=== PATIENT | female | born 1995 | race African-American/Black ===

== ENCOUNTER 2021-08-13 11:00 | Outpatient (CLI) | payer MEDICAID ==
[~2021-08-13] VITALS: Ht 152.4 cm; Wt 98.0 kg
[~2021-08-13 11:00] MED LIST: IRONPOW5; LORA5CHW6
[2021-08-13] MEDS ORDERED: CHOL20007 OR (11:10)
[2021-08-13] MEDS ORDERED: OMEP-434 PO (11:10)
[2021-08-13 11:45] LABS: Basophils # (auto) 0 10 ^3/uL (0-0.2); Eosinophils # (auto) 0.2 10 ^3/uL (0-0.8); Hemoglobin 8.6 g/dL (12.2-16.2); Monocytes # (auto) 0.6 10 ^3/uL (0-1.3)
[2021-08-13 11:47] LABS: Basophils % (auto) 0.3 % (0.0-2.0); Hematocrit 27.4 % (36.0-46.0); Lymphocytes # (auto) 1.6 10 ^3/uL (0.4-5.4); Lymphocytes % (auto) 21.5 % (10.0-50.0); Mean Corpuscular Hemoglobin 18.1 pg (28.0-32.0); Mean Corpuscular Hgb Conc. 31.2 g/dL (32.0-36.0); Mean Corpuscular Volume 57.9 fL (80.0-100.0); Monocytes % (auto) 7.4 % (0.0-12.0); Neutrophils # (auto) 5.2 10 ^3/uL (1.6-8.6); Neutrophils % (auto) 68.8 % (37.0-80.0); Nucleated Red Blood Cells % 0.1 %; Red Blood Cells 4.74 10^6/uL (4.0-5.20); White Blood Cell 7.5 10^3/uL (4.4-10.8)
[2021-08-13 11:48] LABS: Red Cell Distribution Width 24.4 % (11.8-14.3)
[2021-08-13 12:26] LABS: Calcium 9.5 mg/dL (8.5-10.1); Potassium 3.9 mmol/L (3.5-5.1)
[2021-08-13 12:44] LABS: Albumin 3.3 g/dL (3.4-5.0); BUN/Creatinine Ratio 8.5; Bilirubin, Total 0.3 mg/dL (0.2-1.0); Total Protein 8.4 g/dL (6.4-8.2)
== END 2021-08-13 11:33 | disposition home or self-care (01) ==
LOC: LAB 11:00 → EDSTATUS 08-16 12:45
PROVIDERS: ATTEND Internal Medicine Gastroenterology
DX: Z01.818 Encounter for other preprocedural examination (principal); R10.13 Epigastric pain; Z20.822 Contact with and (suspected) exposure to COVID-19; Z98.890 Other specified postprocedural states; Z79.899 Other long term (current) drug therapy; Z68.41 Body mass index [BMI] 40.0-44.9, adult
CPT/HCPCS: 36415; 80053; 85025; U0003

== ENCOUNTER → 2021-12-11 | Day surgery (SDC) | payer MEDICAID ==
[2021-12-09 14:03] LABS: Basophils # (auto) 0 10 ^3/uL (0-0.2); Basophils % (auto) 0.7 % (0.0-2.0); Eosinophils # (auto) 0.1 10 ^3/uL (0-0.8); White Blood Cell 6.4 10^3/uL (4.4-10.8)
[2021-12-09 14:05] LABS: Eosinophils % (auto) 1.5 % (0.0-7.0); Hematocrit 29.5 % (36.0-46.0); Lymphocytes % (auto) 16.4 % (10.0-50.0); Mean Corpuscular Hemoglobin 19.9 pg (28.0-32.0); Mean Corpuscular Hgb Conc. 30.6 g/dL (32.0-36.0); Mean Corpuscular Volume 64.9 fL (80.0-100.0); Monocytes # (auto) 0.5 10 ^3/uL (0-1.3); Monocytes % (auto) 8.3 % (0.0-12.0); Neutrophils # (auto) 4.7 10 ^3/uL (1.6-8.6); Neutrophils % (auto) 73.1 % (37.0-80.0); Red Blood Cells 4.55 10^6/uL (4.0-5.20)
[2021-12-09 14:07] LABS: Red Cell Distribution Width 30.2 % (11.8-14.3)
[2021-12-09 14:17] LABS: INR 1.04 (0.9-1.15); Partial Thromboplastin Time 26.9 sec (23.6-33.0)
[2021-12-09 15:11] LABS: Albumin 3.7 g/dL (3.4-5.0); Calcium 9.4 mg/dL (8.5-10.1); Potassium 4.1 mmol/L (3.5-5.1)
[2021-12-09 15:15] LABS: BUN/Creatinine Ratio 9.5; Bilirubin, Total 0.2 mg/dL (0.2-1.0); Total Protein 8.3 g/dL (6.4-8.2)
[~2021-12-11] VITALS: Ht 157.5 cm; Wt 96.6 kg
[~2021-12-11] MED LIST changes: +B COTAB OR; +CHOL20007 OR; +DICY10CA PO; +LIDOCAINE VISCOUS 2% 15ML UD ONE; +OMEP-434 PO; +[UNRECOGNIZED DRUG - CODE] XX
[2021-12-11] MEDS: fentaNYL CITRATE 100 MCG/2 ML VL ONE ×2 (13:24→13:27)
[2021-12-11] MEDS: MIDAZOLAM HCL 5 MG/ML-1ML VIAL ONE ×3 (13:24→13:30)
[2021-12-11] MEDS: diphenhdrAMINE HCL 50 MG/1 ML VL ONE ×2 (13:24→13:27)
[2021-12-11 14:25] VITALS: BP 116/66
== END | disposition home or self-care (01) ==
LOC: GI 12:41
PROVIDERS: ATTEND Internal Medicine Gastroenterology
DX: R10.13 Epigastric pain (principal); K21.00 Gastro-esophageal reflux disease with esophagitis, without bleeding; K29.50 Unspecified chronic gastritis without bleeding; K31.84 Gastroparesis; K44.9 Diaphragmatic hernia without obstruction or gangrene; K29.90 Gastroduodenitis, unspecified, without bleeding; Z86.2 Personal history of diseases of the blood and blood-forming organs and certain disorders involving the immune mechanism; Z20.822 Contact with and (suspected) exposure to COVID-19; Z98.890 Other specified postprocedural states; Z79.899 Other long term (current) drug therapy
CPT/HCPCS: 36415; 43239; 80053; 84702; 85025; 85610; 85730; 88305; 88342; J1200; J2250; J3010; J7030; U0003; 99152

== ENCOUNTER 2022-03-19 12:22 | Day surgery (SDC) | payer MEDICAID ==
[2022-03-17 11:13] LABS: Urine Bacteria FEW /hpf (None Seen); Urine Blood Negative /uL (Negative); Urine Specific Gravity 1.015 (1.001-1.035); Urine WBC 8 /hpf (0 - 5)
[2022-03-17 11:34] LABS: Albumin 3.4 g/dL (3.4-5.0); Potassium 3.8 mmol/L (3.5-5.1)
[2022-03-17 11:38] LABS: Bilirubin, Total 0.3 mg/dL (0.2-1.0); Total Protein 8.6 g/dL (6.4-8.2)
[2022-03-17 11:57] LABS: Eosinophils # (auto) 0.1 10 ^3/uL (0-0.8); Eosinophils % (auto) 1.4 % (0.0-7.0); Lymphocytes # (auto) 1.4 10 ^3/uL (0.4-5.4); White Blood Cell 7.7 10^3/uL (4.4-10.8)
[2022-03-17 11:59] LABS: Basophils # (auto) 0.2 10 ^3/uL (0-0.2); Basophils % (auto) 2.7 % (0.0-2.0); Hematocrit 31.1 % (36.0-46.0); Mean Corpuscular Hemoglobin 21.8 pg (28.0-32.0); Mean Corpuscular Hgb Conc. 32.3 g/dL (32.0-36.0); Mean Corpuscular Volume 67.5 fL (80.0-100.0); Monocytes # (auto) 0.8 10 ^3/uL (0-1.3); Monocytes % (auto) 10.1 % (0.0-12.0); Neutrophils # (auto) 5.2 10 ^3/uL (1.6-8.6); Neutrophils % (auto) 67.8 % (37.0-80.0); Red Cell Distribution Width 22.5 % (11.8-14.3)
[2022-03-17 12:03] LABS: INR 1.05 (0.9-1.15); Partial Thromboplastin Time 30.5 sec (23.6-33.0)
[~2022-03-19] VITALS: Ht 157.5 cm; Wt 95.3 kg
[~2022-03-19 12:22] MED LIST changes: -CHOL20007 OR; -DICY10CA PO; -LIDOCAINE VISCOUS 2% 15ML UD ONE; -[UNRECOGNIZED DRUG - CODE] XX
[2022-03-19] MEDS ORDERED: PROPOFOL 10 MG/ML 20 ML IV ONE ×2 (14:29→14:45)
[2022-03-19] MEDS ORDERED: LIDOCAINE HCL 100 MG/5ML (2%) SYRG INJ IV ONE (14:32)
[2022-03-19] MEDS ORDERED: fentaNYL CITRATE 100 MCG/2 ML VL IV PRN (15:15)
[2022-03-19 15:25] VITALS: BP 101/61
== END 2022-03-19 15:55 | disposition home or self-care (01) ==
LOC: GI 12:22
PROVIDERS: ATTEND Internal Medicine Gastroenterology
DX: R93.3 Abnormal findings on diagnostic imaging of other parts of digestive tract (principal); D64.9 Anemia, unspecified; K64.8 Other hemorrhoids; K63.89 Other specified diseases of intestine; K92.89 Other specified diseases of the digestive system; Z20.822 Contact with and (suspected) exposure to COVID-19; Z86.2 Personal history of diseases of the blood and blood-forming organs and certain disorders involving the immune mechanism
CPT/HCPCS: 36415; 45378; 80053; 81001; 81025; 84702; 85025; 85610; 85730; J2704; J7030; U0003

== ENCOUNTER → 2022-04-30 | Outpatient (CLI) | payer MEDICAID ==
[2022-04-30 14:09] LABS: Basophils # (auto) 0.1 10 ^3/uL (0-0.2); Basophils % (auto) 0.7 % (0.0-2.0); Eosinophils # (auto) 0.2 10 ^3/uL (0-0.8); Mean Corpuscular Volume 69.8 fL (80.0-100.0); White Blood Cell 7.7 10^3/uL (4.4-10.8)
[2022-04-30 14:10] LABS: Eosinophils % (auto) 2.9 % (0.0-7.0); Hematocrit 31.1 % (36.0-46.0); Lymphocytes # (auto) 1.9 10 ^3/uL (0.4-5.4); Lymphocytes % (auto) 25.2 % (10.0-50.0); Mean Corpuscular Hemoglobin 22.5 pg (28.0-32.0); Mean Corpuscular Hgb Conc. 32.2 g/dL (32.0-36.0); Monocytes # (auto) 0.8 10 ^3/uL (0-1.3); Monocytes % (auto) 10.2 % (0.0-12.0); Neutrophils # (auto) 4.7 10 ^3/uL (1.6-8.6); Nucleated Red Blood Cells % 0.1 %; Red Blood Cells 4.45 10^6/uL (4.0-5.20)
[2022-04-30 14:12] LABS: Red Cell Distribution Width 21.4 % (11.8-14.3)
[2022-04-30 15:08] LABS: Albumin 3.2 g/dL (3.4-5.0); Calcium 9.1 mg/dL (8.5-10.1); Potassium 3.8 mmol/L (3.5-5.1)
[2022-04-30 15:10] LABS: BUN/Creatinine Ratio 11.4; Bilirubin, Total 0.2 mg/dL (0.2-1.0); Total Protein 8.4 g/dL (6.4-8.2)
== END | disposition home or self-care (01) ==
LOC: LAB 13:57
PROVIDERS: ATTEND Internal Medicine Gastroenterology
DX: D64.9 Anemia, unspecified (principal); K59.02 Outlet dysfunction constipation; R93.3 Abnormal findings on diagnostic imaging of other parts of digestive tract
CPT/HCPCS: 36415; 80053; 82150; 83690; 84443; 85025

== ENCOUNTER 2023-07-01 11:21 | Inpatient (IN) | payer MEDICAID ==
[2023-07-01] VITALS (7 sets, daily range): BP systolic 100–118; BP diastolic 30–70; PULSE 75–101; RESP 18–97; TEMP 98.4–98.8; O2SAT 96–99
[~2023-07-01] VITALS: Ht 154.9 cm; Wt 106.1 kg
[2023-07-01 12:58] LABS: Eosinophils # (auto) 0.1 10 ^3/uL (0-0.8); Eosinophils % (auto) 1.2 % (0.0-7.0); Mean Corpuscular Volume 60.5 fL (80.0-100.0)
[2023-07-01 13:00] LABS: Basophils # (auto) 0.1 10 ^3/uL (0-0.2); Basophils % (auto) 0.8 % (0.0-2.0); Hematocrit 24.4 % (36.0-46.0); Hemoglobin 7.2 g/dL (12.2-16.2); Lymphocytes # (auto) 1.8 10 ^3/uL (0.4-5.4); Lymphocytes % (auto) 19.8 % (10.0-50.0); Mean Corpuscular Hemoglobin 17.8 pg (28.0-32.0); Mean Corpuscular Hgb Conc. 29.4 g/dL (32.0-36.0); Monocytes # (auto) 0.8 10 ^3/uL (0-1.3); Monocytes % (auto) 8.2 % (0.0-12.0); Neutrophils # (auto) 6.4 10 ^3/uL (1.6-8.6); Nucleated Red Blood Cells % 0.3 %; Red Blood Cells 4.02 10^6/uL (4.0-5.20); Red Cell Distribution Width 22.2 % (11.8-14.3); White Blood Cell 9.2 10^3/uL (4.4-10.8)
[2023-07-01 13:03] LABS: Anisocytosis Slight; Platelet Estimate Increased
[2023-07-01 13:04] LABS: Hypochromia Moderate
[2023-07-01 13:26] LABS: Albumin 3.3 g/dL (3.4-5.0); Calcium 8.8 mg/dL (8.5-10.1); Potassium 3.9 mmol/L (3.5-5.1)
[2023-07-01 13:28] LABS: BUN/Creatinine Ratio 8.6 (10.0-20.0); Bilirubin, Total 0.3 mg/dL (0.2-1.0); Total Protein 8.5 g/dL (6.4-8.2)
[2023-07-01 14:36] LABS: Basophils # (auto) 0 10 ^3/uL (0-0.2); Eosinophils # (auto) 0.1 10 ^3/uL (0-0.8); Eosinophils % (auto) 0.9 % (0.0-7.0)
[2023-07-01 14:39] LABS: Basophils % (auto) 0.3 % (0.0-2.0); Hematocrit 23.3 % (36.0-46.0); Lymphocytes # (auto) 1.8 10 ^3/uL (0.4-5.4); Lymphocytes % (auto) 18.8 % (10.0-50.0); Mean Corpuscular Hemoglobin 18.2 pg (28.0-32.0); Mean Corpuscular Hgb Conc. 30.1 g/dL (32.0-36.0); Mean Corpuscular Volume 60.4 fL (80.0-100.0); Monocytes # (auto) 0.7 10 ^3/uL (0-1.3); Neutrophils # (auto) 6.9 10 ^3/uL (1.6-8.6); Nucleated Red Blood Cells % 0.5 %; Red Blood Cells 3.86 10^6/uL (4.0-5.20); White Blood Cell 9.4 10^3/uL (4.4-10.8)
[2023-07-01 15:01] LABS: Red Cell Distribution Width 21.9 % (11.8-14.3)
[2023-07-01] MEDS ORDERED: FERROUS SULFATE 325mg EC TAB PO ONE (15:15)
[2023-07-01 15:33] LABS: Anisocytosis Slight; Hypochromia Marked; Large Platelets FEW; Ovalocytes FEW; Platelet Estimate Increased; Target Cell FEW
[2023-07-01 17:03] LABS: INR 0.99 (0.9-1.15); Partial Thromboplastin Time 26.6 SEC (24.5-34.5); Prothrombin Time 10.4 sec (9.3-11.8)
[2023-07-01 17:12] LABS: % Iron Saturation 2.6 % (15-50)
[2023-07-01] MEDS ORDERED: MORPHINE SULFATE INJ 2 MG/ml SYRG IV PRN (17:15)
[2023-07-01] MEDS ORDERED: NITROGLYCERIN 0.4 MG SL TAB SL PRN (17:15)
[2023-07-01 22:52] LABS: Urine Bacteria FEW /hpf (None Seen); Urine Blood Negative /uL (Negative); Urine Clarity Clear (Clear); Urine Color Yellow (Yellow); Urine Mucus FEW (None Seen); Urine Protein, UAD Negative (Negative); Urine Specific Gravity 1.015 (1.001-1.035); Urine Urobilinogen Normal (Negative); Urine WBC 7 /hpf (0 - 5); Urine pH 5.5 (5.0-8.0)
[2023-07-02 01:49] VITALS: BP 126/56; PULSE 86; RESP 18; TEMP 99.3; O2SAT 94
[2023-07-02 05:00] VITALS: BP 118/61; PULSE 90; RESP 18; TEMP 98.3; O2SAT 97
[2023-07-02] MEDS ORDERED: NORG1TAB56 PO (06:11)
[2023-07-02] MEDS ORDERED: FERR-7 PO (06:55)
[2023-07-02 08:31] LABS: Basophils # (auto) 0 10 ^3/uL (0-0.2); Eosinophils # (auto) 0.1 10 ^3/uL (0-0.8); Hemoglobin 8.4 g/dL (12.2-16.2); Monocytes # (auto) 0.6 10 ^3/uL (0-1.3)
[2023-07-02 08:34] LABS: Basophils % (auto) 0.3 % (0.0-2.0); Eosinophils % (auto) 0.8 % (0.0-7.0); Hematocrit 28.5 % (36.0-46.0); Lymphocytes # (auto) 1.9 10 ^3/uL (0.4-5.4); Lymphocytes % (auto) 19.5 % (10.0-50.0); Mean Corpuscular Hgb Conc. 29.6 g/dL (32.0-36.0); Mean Corpuscular Volume 64.2 fL (80.0-100.0); Monocytes % (auto) 5.7 % (0.0-12.0); Neutrophils # (auto) 7.3 10 ^3/uL (1.6-8.6); Neutrophils % (auto) 73.7 % (37.0-80.0); Nucleated Red Blood Cells % 0.3 %; Red Blood Cells 4.43 10^6/uL (4.0-5.20)
[2023-07-02 08:45] LABS: Red Cell Distribution Width 26.2 % (11.8-14.3)
[2023-07-02 08:49] LABS: Albumin 3.1 g/dL (3.4-5.0); Calcium 8.8 mg/dL (8.5-10.1); Potassium 3.8 mmol/L (3.5-5.1)
[2023-07-02 08:53] LABS: BUN/Creatinine Ratio 9.8 (10.0-20.0); Bilirubin, Total 0.5 mg/dL (0.2-1.0); Total Protein 8.2 g/dL (6.4-8.2)
[2023-07-02 09:13] VITALS: BP 110/55; PULSE 77; RESP 18; TEMP 98.9; O2SAT 97
[2023-07-02 11:06] LABS: Anisocytosis Moderate; Hypochromia Moderate; Platelet Estimate Increased
[2023-07-02 13:00] VITALS: BP 115/69; PULSE 94; RESP 16; TEMP 98.9; O2SAT 100
[2023-07-02 13:10] VITALS: TEMP 37.2
[2023-07-02] MEDS ORDERED: ASCO500T11 PO (13:28)
== END 2023-07-02 15:15 | disposition home or self-care (01) | DRG 663 ==
LOC: ER 11:21 → OVERFLOW 17:10 → CENTRAL 23:00
PROVIDERS: ADMIT Internal Medicine Pulmonary Disease
PROC: 30233N1 Transfusion of Nonautologous Red Blood Cells into Peripheral Vein, Percutaneous Approach (ICD-10-PCS; principal; 2023-07-01)
DX: D50.0 Iron deficiency anemia secondary to blood loss (chronic) (principal); E44.0 Moderate protein-calorie malnutrition; N92.0 Excessive and frequent menstruation with regular cycle; Z68.41 Body mass index [BMI] 40.0-44.9, adult
CPT/HCPCS: 36415; 76856; 80053; 81001; 82728; 83540; 83550; 84702; 85025; 85610; 85730; 86850; 86900; 86901; 86920; G0378

== ENCOUNTER → 2023-07-23 | Outpatient (CLI) | payer MEDICAID ==
[~2023-07-23] MED LIST changes: +ASCO500T11 PO; -B COTAB OR; +FERR-7 PO; -IRONPOW5; -LORA5CHW6; +NORG1TAB56 PO; -OMEP-434 PO
[2023-07-23 10:41] LABS: Basophils # (auto) 0 10 ^3/uL (0-0.2); Eosinophils # (auto) 0.2 10 ^3/uL (0-0.8); Hemoglobin 8.7 g/dL (12.2-16.2); Mean Corpuscular Hgb Conc. 30.6 g/dL (32.0-36.0); Monocytes # (auto) 0.7 10 ^3/uL (0-1.3); Nucleated Red Blood Cells % 0.1 %
[2023-07-23 10:43] LABS: Basophils % (auto) 0.4 % (0.0-2.0); Eosinophils % (auto) 2.6 % (0.0-7.0); Hematocrit 28.5 % (36.0-46.0); Lymphocytes % (auto) 25.6 % (10.0-50.0); Mean Corpuscular Hemoglobin 18.8 pg (28.0-32.0); Mean Corpuscular Volume 61.5 fL (80.0-100.0); Monocytes % (auto) 8.5 % (0.0-12.0); Neutrophils # (auto) 4.9 10 ^3/uL (1.6-8.6); Neutrophils % (auto) 62.9 % (37.0-80.0); Red Blood Cells 4.63 10^6/uL (4.0-5.20); Red Cell Distribution Width 26.6 % (11.8-14.3); White Blood Cell 7.8 10^3/uL (4.4-10.8)
[2023-07-23 12:00] LABS: Alanine Aminotransferase 22 U/L (7-40); Albumin 4.2 g/dL (3.2-4.8); Alkaline Phosphatase 108 U/L (46-116); Anion Gap 7.9 (5-15); Aspartate Aminotransferase 17 U/L (13-40); BUN/Creatinine Ratio 12.5 (10.0-20.0); Blood Urea Nitrogen 9 mg/dL (9-23); Calcium 9.3 mg/dL (8.5-10.1); Carbon Dioxide 27.1 mmol/L (20-30); Chloride 106 mmol/L (98-107); Glucose 86 mg/dL (74-106); Potassium 4.1 mmol/L (3.5-5.1); Sodium 141 mmol/L (136-145)
[2023-07-23 12:01] LABS: Bilirubin, Total 0.3 mg/dL (0.2-1.0); Free T4 (Free Thyroxine) 1.22 ng/dL (0.89-1.76); Total Protein 7.4 g/dL (5.7-8.2)
[2023-07-23 12:18] LABS: Beta HCG, Quantitative 1.5 mIU/mL (1.5-4.2)
[2023-07-23 14:19] LABS: Thyroid Stimulating Hormone 2.32 uIU/mL (0.358-3.74)
== END | disposition home or self-care (01) ==
LOC: LAB 10:25
PROVIDERS: ATTEND Obstetrics & Gynecology
DX: N93.9 Abnormal uterine and vaginal bleeding, unspecified (principal)
CPT/HCPCS: 36415; 80053; 82670; 83036; 84146; 84439; 84443; 84702; 85025

== ENCOUNTER 2025-02-16 12:22 | Emergency (ER) | payer MEDICAID ==
[~2025-02-16] VITALS: Ht 157.5 cm; Wt 102.8 kg
[2025-02-16 13:12] VITALS: BP 120/66; PULSE 90; RESP 18; TEMP 98.5; O2SAT 98
--- NOTE | 2025-02-16 13:25 | ED.PDOC ---
History of Present Illness(SKN HPI Comments A 29 YEAR OLD FEMALE PRESENTS TO THE ED WITH CHIEF COMPLAINT OF ABSCESS. PATIENT REPORTS THAT SHE HAS BEEN EXPERIENCING AN ABSCESS TO HER LEFT AXILLA FOR THE PAST WEEK, VISITING HER PCP ON 02/14/25 FOR DRAINAGE AND PACKING. PATIENT RELAYS THAT SHE WAS ADVISED TODAY TO COME TO THE ED BY HER PCP FOR ANTIBIOTICS AND ANOTHER INCISION AND DRAINAGE. PATIENT DENIES ANY FEVER, CHILLS, N/V, OR ABDOMINAL PAIN. NO OTHER SYMPTOMS REPORTED AT THIS TIME OF CARE. Chief Complaint: Abscess Time Seen by MD: 13:20 Primary Care Provider: SINDI History of Present Illness: Nurses Notes, Medications, Allergies Allergies: Coded Allergies: NO KNOWN ALLERGIES (Unverified , 05/31/10) Home Meds Active Scripts Ibuprofen (Ibuprofen) 800 Mg Tab, 1 TAB PO TID, #20 TAB Prov:SONIDO BANERJEE 02/16/25 Sulfamethoxazole W/Trimethopri (Bactrim Ds Tablet) 1 Tab Tb, 1 TAB PO BID for 10 Days, #20 TAB Prov:SONIDO BANERJEE 02/16/25 Reported Medications Ascorbic Acid (VITAMIN C TABLET) 500 Mg Tb, 1 TAB PO DAILY, TAB 07/02/23 Ferrous Sulfate (Iron) 325 Mg Tab, 325 MG PO DAILY, TAB 07/02/23 Norgestimate-Ethinyl Estradiol (Norgestimate/Eth... 0.18/0.215/0.25 mg-25 Mcg) 1 Tab Tab, 1 TAB PO DAILY, #1 TAB 07/02/23 Information Source: Patient Mode of Arrival: Ambulatory Severity: Moderate Timing: Weeks Duration: Since onset Prehospital treatment: None Location: Other (LEFT AXILLA) Mechanism: Spontaneous Onset Object: None Condition of Object: None Retained Foreign Body: No Wound Type: Abscess Tetanus: UTD Associated Signs and Symptoms: Redness, Swelling, Pus, Pain Past Medical History PAST MEDICAL HISTORY: Denies Surgical History: Denies all surgeries DOOR MAKER History: No Pertinent DOOR MAKER History Family History Family History: Reviewed,noncontributory to illness, Unknown Social History Smoker: Non-Smoker Alcohol: Denies ETOH Use Drugs: Denies Drug Use Lives In: Home Constitutional: denies: chills, diaphoresis, fatigue, fever, malaise, sweats, weakness, others EENTM: denies: blurred vision, double vision, ear bleeding, ear discharge, ear drainage, ear pain, ear ringing, eye pain, eye redness, hearing loss, mouth pain, mouth swelling, nasal discharge, nose bleeding, nose congestion, nose pain, photophobia, tearing, throat pain, throat swelling, voice changes, others Respiratory: denies: cough, hemoptysis, orthopnea, SOB at rest, shortness of breath, SOB with excertion, stridor, wheezing, others Cardiovascular: denies: chest pain, dizzy spells, diaphoresis, Dyspnea on exertion, edema, irregular heart beat, left arm pain, lightheadedness, palpitations, PND, syncope, others Gastrointestinal: denies: abdomen distended, abdominal pain, blood streaked bowels, constipated, diarrhea, dysphagia, difficulty swallowing, hematemesis, melena, nausea, poor appetite, poor fluid intake, rectal bleeding, rectal pain, vomiting, others Genitourinary: denies: abnormal vagina bleeding, burning, dyspareunia, dysuria, flank pain, frequency, hematuria, incontinence, pain, , vagina discharge, urgency, others Neurological: denies: dizziness, fainting, headache, left sided numbness, left sided weakness, numbness, paresthesia, pre-existing deficit, right sided numbness, right sided weakness, seizure, speech problems, tingling, tremors, weakness, others Musculoskeletal: denies: back pain, gout, joint pain, joint swelling, muscle pain, muscle stiffness, neck pain, others Integumetry: reports: lesions (ABSCESS TO LEF AXILLA), lumps; denies: bruises, change in color, change in hair/nails, dryness, laceration, rash, wounds, others Allergic/Immunocompromised: denies: Difficulty Healing, Frequent Infections, Hives, Itching, others Hematologic/Lymphatic: denies: anemia, blood clots, easy bleeding, easy bruising, swollen glands, others Endocrine: denies: excessive hunger, excessive sweating, excessive thirst, excessive urination, flushing, intolerance to cold, intolerance to heat, unexplained weight gain, unexplained weight loss, others Psychiatric: denies: anxiety, bipolar disorder, depression, hopeless, panic disorder, schizophrenia, sleepless, suicidal, others All Other Systems: Reviewed and Negative Physical Exam General Appearance: No Apparent Distress, Obese HEENT: Normal ENT Inspection, PERRL/EOMI, Pharynx Normal Neck: Full Range of Motion, Non-Tender, Normal, Normal Inspection Respiratory: Chest Non-Tender, Lungs Clear, No Accessory Muscle Use, No Respiratory Distress, Normal Breath Sounds Cardiovascular: No Edema, No JVD, No Murmur, No Gallop, Normal Peripheral Pulses, Regular Rate/Rhythm Breast Exam: Deferred Gastrointestinal: No Organomegaly, Non Tender, No Pulsatile Mass, Normal Bowel Sounds, Soft Genitalia: Deferred Pelvic: Deferred Rectal: Deferred Extremities: No calf tenderness, Normal capillary refill, Normal range of motion, No pedal edema, Tender (AND ABSCESS ON LEFT AXILLARY. ) Musculoskeletal : Apperance: Normal Neurologic: Alert, jeep mechanic II-XII nml as Tested, No Motor Deficits, Normal Affect, Normal Mood, No Sensory Deficits Cerebellar Function: Normal Reflexes: Normal Skin: Dry, Warm, Wounds (ABSCESS WOUND WITH LOCALIZED REDNESS, SWELLING AND TENDERNESS ON LEFT AXILLA REGION, MILD PUS DRAINAGE. ) Peripheral Pulses: 2+ carotid (R), 2+ carotid (L) Lymphatic: No Adenopathy Was a procedure done? Was a procedure done?: Yes Sedation Sedation?: No Incision and Drainage Incision and Drainage: Abscess Location LEFT AXILLA Anesthetic: Lidocaine (10ML) Preparation: Betadine, Saline Incision and Wound: Pus, Blood, Amount, Irrigated, Packed Informed consent obtained: Yes Risks/benefits/alt described: Yes Notes ADMINISTERED 10CCS OF LIDOCAINE TO LEFT AXILLA. UTILIZED SCALPEL TO INCISE ABSCESS TO LEFT AXILLA. PURULENT AND SANGUINOUS DRAINAGE NOTED. WOUND CLEANED, PACKED, AND DRESSED PRIOR TO DISCHARGE. Images 1 - Differential Diagnosis (INTG) Differential Diagnosis: Abscess, Cellulitis X-Ray, Labs, Meds, VS Vital Signs Date Time Temp Pulse Resp B/P (MAP) Pulse Ox O2 Delivery O2 Flow Rate FiO2 02/16/25 13:12 90 18 98 Room Air 02/16/25 13:12 98.5 90 18 120/66 (84) 98 98.5 02/16/25 12:51 98.5 90 18 120/66 (84) 98 98.5 Current Medications Medications (Trade) Dose Ordered Sig/Elaina Route Start Time Stop Time Status Last Admin Ceftriaxone Sodium (Rocephin) 1,000 mg ONCE ONCE IM 02/16/25 13:45 02/16/25 13:46 DC 02/16/25 13:48 X-Ray, Labs, Meds, VS Comment EXTERNAL MEDICAL RECORDS REVIEWED: [NONE] INDEPENDENT HISTORIANS: [NONE] SOCIAL DETERMINANTS OF HEALTH: [NONE] LABS ORDERED: NONE REVIEWED AND INTERPRETED RESULTS: NONE IMAGING ORDERED: NONE TREATMENTS ORDERED: ROCEPHIN 1G IM PROCEDURES PERFORMED: I&D OF LEFT AXILLARY ABSCESS. WOUND CLEANED AND PACKED. CRITICAL CARE TIME: NONE I HAVE DISCUSSED THE PATIENT WITH THE ATTENDING PHYSICIAN DR. DUMONT AND HE AGREES WITH THE PATIENT'S PLAN OF CARE AND DISPOSITION. BASED ON HISTORY OF PRESENT ILLNESS, AND PHYSICAL EXAM, PATIENT WILL BE DISCHARGED HOME. DISCUSSED PLAN FOR DISCHARGE HOME WITH RX EVELIA NUNEZ. MEDICATION WARNINGS GIVEN. SHARED DECISION MAKING: DISCUSSED WITH PATIENT THAT THEIR WORKUP WAS NORMAL. PATIENT INSTRUCTED TO FOLLOW UP WITH PRIMARY CARE PROVIDER IN 1-2 DAYS FOR RE- EVALUATION OF SYMPTOMS. PATIENT VERBALIZES UNDERSTANDING TO RETURN TO ED FOR NEW OR WORSENING SYMPTOMS OR IF FOLLOW UP WITH PCP CANNOT BE OBTAINED. PATIENT FEELS COMFORTABLE GOING HOME AT THIS TIME. ALL QUESTIONS ADDRESSED AT TIME OF DISCHARGE. Time of 1ST Reevaluation: 13:50 Reevaluation 1ST: Improved Patient Education/Counseling: Diagnosis, Treatment Family Education/Counseling: No Family Present Departure 1 Departure Time of Disposition: 14:20 Impression: Primary Impression: Abscess of left axilla Disposition: 01 HOME / SELF CARE / HOMELESS Condition: Stable Additional Instructions: FOLLOW-UP WITH PCP IN 1 TO 2 DAYS. TAKE MEDICATIONS PRESCRIBED. RETURN TO ED FOR ANY NEW OR WORSENING SYMPTOMS. e-Prescriptions Ibuprofen (Ibuprofen) 800 Mg Tab 1 TAB PO TID, #20 TAB Prov: SONIDO BANERJEE 02/16/25 Sulfamethoxazole W/Trimethopri (Bactrim Ds Tablet) 1 Tab Tb 1 TAB PO BID for 10 Days, #20 TAB Prov: SONIDO BANERJEE 02/16/25 Discharged With: Self Critical Care Note Critical Care Time?: No Stability Stability form required: No Heart Score Heart Score: Heart Score Response (Comments) Value History N/A 0 EKG N/A 0 Age N/A 0 Risk Factors N/A 0 Troponin N/A 0 Total 0 I personally scribed for SONIDO BANERJEE ([email or web address]) on 02/16/25 at 13:24. Electronically submitted by Pal [email or web address]). I personally scribed for SONIDO BANERJEE ([email or web address]) on 02/16/25 at 14:08. Electronically submitted by Pal Centeno ([email or web address]). SONIDO BANERJEE Feb 16, 2025 13:24
[2025-02-16] MEDS: LIDOCAINE 1% HCL (LOCAL ANESTH.) INJ 20ML MDV IJ ONE (13:36)
[2025-02-16] MEDS ORDERED: cefTRIAXone SOD 500 MG VL IM ONE (13:45)
[2025-02-16] MEDS: cefTRIAXone SOD 1,000 MG VL IM ONE (13:48)
[2025-02-16] MEDS ORDERED: BACDST PO (14:07)
[2025-02-16] MEDS ORDERED: IBUP-1456 PO (14:07)
== END 2025-02-16 14:13 | disposition home or self-care (01) ==
LOC: ER 12:22
DX: L02.412 Cutaneous abscess of left axilla (principal); Z79.1 Long term (current) use of non-steroidal anti-inflammatories (NSAID); Z79.899 Other long term (current) drug therapy
CPT/HCPCS: 10060; 87205; 96372; 99283; J0696; J2003

== ENCOUNTER 2025-02-18 14:45 | Emergency (ER) | payer MEDICAID ==
[~2025-02-18] VITALS: Ht 157.5 cm; Wt 104.7 kg
[~2025-02-18 14:45] MED LIST changes: +BACDST PO; +IBUP-1456 PO
[2025-02-18 15:27] VITALS: BP 133/76; PULSE 99; RESP 18; TEMP 98.9; O2SAT 100
--- NOTE | 2025-02-18 15:28 | ED.PDOC ---
History of Present Illness HPI Comments A 29 YEAR OLD FEMALE PRESENTS TO THE ED WITH COMPLAINT OF WOUND RECHECK. PATIENT STATES SHE HAD AN ABSCESS IN HER LEFT AXILLARY REGION DRAINED 2 DAYS AGO AND WAS INSTRUCTED TO COME BACK TO THE ED TODAY FOR A WOUND RECHECK TO THIS AREA. PATIENT DENIES FEVER, CHILLS, SHORTNESS OF BREATH, CHEST PAIN, ABDOMINAL PAIN, NAUSEA, VOMITING, HEADACHE, OR OTHER COMPLAINTS. NO OTHER SYMPTOMS OR MODIFYING FACTORS AT THIS TIME. PATIENT IS ALERT, ORIENTED X 4, AND HAS STEADY GAIT. Chief Complaint: Wound Check Time Seen by MD: 14:54 Primary Care Provider: SINDI Reviewed Notes: Nurses Notes, Medications, Allergies Allergies: Coded Allergies: NO KNOWN ALLERGIES (Unverified , 05/31/10) Home Meds Active Scripts Ibuprofen (Ibuprofen) 800 Mg Tab, 1 TAB PO TID, #20 TAB Prov:SONIDO BANERJEE 02/16/25 Sulfamethoxazole W/Trimethopri (Bactrim Ds Tablet) 1 Tab Tb, 1 TAB PO BID for 10 Days, #20 TAB Prov:SONIDO BANERJEE 02/16/25 Reported Medications Ascorbic Acid (VITAMIN C TABLET) 500 Mg Tb, 1 TAB PO DAILY, TAB 07/02/23 Ferrous Sulfate (Iron) 325 Mg Tab, 325 MG PO DAILY, TAB 07/02/23 Norgestimate-Ethinyl Estradiol (Norgestimate/Eth... 0.18/0.215/0.25 mg-25 Mcg) 1 Tab Tab, 1 TAB PO DAILY, #1 TAB 07/02/23 Information Source: Patient Mode of Arrival: Ambulatory Severity: None Timing: Days Duration: Days Prehospital treatment: None Medication Refill: For: Other (ABSCESS WOUND RECHECK) Past Medical History PAST MEDICAL HISTORY: Denies Surgical History: Denies all surgeries FIBER TECHNOLOGIST History: No Pertinent FIBER TECHNOLOGIST History Family History Family History: Reviewed,noncontributory to illness Social History Smoker: Non-Smoker Alcohol: Denies ETOH Use Drugs: Denies Drug Use Lives In: Home Constitutional: denies: chills, diaphoresis, fatigue, fever, malaise, sweats, weakness, others EENTM: denies: blurred vision, double vision, ear bleeding, ear discharge, ear drainage, ear pain, ear ringing, eye pain, eye redness, hearing loss, mouth pain, mouth swelling, nasal discharge, nose bleeding, nose congestion, nose pain, photophobia, tearing, throat pain, throat swelling, voice changes, others Respiratory: denies: cough, hemoptysis, orthopnea, SOB at rest, shortness of breath, SOB with excertion, stridor, wheezing, others Cardiovascular: denies: chest pain, dizzy spells, diaphoresis, Dyspnea on exertion, edema, irregular heart beat, left arm pain, lightheadedness, palpitations, PND, syncope, others Gastrointestinal: denies: abdomen distended, abdominal pain, blood streaked bowels, constipated, diarrhea, dysphagia, difficulty swallowing, hematemesis, melena, nausea, poor appetite, poor fluid intake, rectal bleeding, rectal pain, vomiting, others Genitourinary: denies: abnormal vagina bleeding, burning, dyspareunia, dysuria, flank pain, frequency, hematuria, incontinence, pain, , vagina disc harge, urgency, others Neurological: denies: dizziness, fainting, headache, left sided numbness, left sided weakness, numbness, paresthesia, pre-existing deficit, right sided numbness, right sided weakness, seizure, speech problems, tingling, tremors, weakness, others Musculoskeletal: denies: back pain, gout, joint pain, joint swelling, muscle pain, muscle stiffness, neck pain, others Integumetry: reports: wounds (LEFT AXILLA ); denies: bruises, change in color, change in hair/nails, dryness, laceration, lesions, lumps, rash, others Allergic/Immunocompromised: denies: Difficulty Healing, Frequent Infections, Hives, Itching, others Hematologic/Lymphatic: denies: anemia, blood clots, easy bleeding, easy bruising, swollen glands, others Endocrine: denies: excessive hunger, excessive sweating, excessive thirst, excessive urination, flushing, intolerance to cold, intolerance to heat, unexplained weight gain, unexplained weight loss, others Psychiatric: denies: anxiety, bipolar disorder, depression, hopeless, panic disorder, schizophrenia, sleepless, suicidal, others All Other Systems: Reviewed and Negative Physical Exam General Appearance: Obese HEENT: Normal ENT Inspection, PERRL/EOMI, Pharynx Normal, TMs Normal Neck: Full Range of Motion, Non-Tender, Normal, Normal Inspection Respiratory: Chest Non-Tender, Lungs Clear, No Accessory Muscle Use, No R espiratory Distress, Normal Breath Sounds Cardiovascular: No Edema, No JVD, No Murmur, No Gallop, Normal Peripheral Pulses, Regular Rate/Rhythm Breast Exam: Deferred Gastrointestinal: No Organomegaly, Non Tender, No Pulsatile Mass, Normal Bowel Sounds, Soft Genitalia: Deferred Pelvic: Deferred Rectal: Deferred Extremities: No calf tenderness, Normal capillary refill, Normal range of motion, No pedal edema, Tender (WITH ABSCESS WOUND ON LEFT AXILLA, HEALING ABSCESS. ) Musculoskeletal : Apperance: Normal Neurologic: Alert, tire classifier II-XII nml as Tested, No Motor Deficits, Normal Affect, Normal Mood, No Sensory Deficits Cerebellar Function: Normal Reflexes: Normal Skin: Dry, Normal Color, Warm, Wounds (ABSCESS WOUND ON LEFT AXILLA HEALING, CORPORATE COUNSELOR PUS DRAINAGE, REDNESS AND SWELLING. ) Peripheral Pulses: 2+ carotid (R), 2+ carotid (L) Lymphatic: No Adenopathy Was a procedure done? Was a procedure done?: No Differential Dx Considerations may include: ABSCESS WOUND RECHECK, WOUND INFECTION, PACKING REMOVAL, PACKING REPLACEMENT X-Ray, Labs, Meds, VS Vital Signs Date Time Temp Pulse Resp B/P (MAP) Pulse Ox O2 Delivery O2 Flow Rate FiO2 02/18/25 15:27 99 18 100 Room Air 02/18/25 15:27 98.9 99 18 133/76 (95) 100 98.9 02/18/25 15:01 98.9 99 18 133/76 (95) 100 98.9 X-Ray, Labs, Meds, VS Comment EXTERNAL MEDICAL RECORDS REVIEWED: [NONE] INDEPENDENT HISTORIANS: [NONE] SOCIAL DETERMINANTS OF HEALTH: [NONE] LABS ORDERED: NONE REVIEWED AND INTERPRETED RESULTS: NONE IMAGING ORDERED: NONE TREATMENTS ORDERED: PATIENT IS WOUND ON HER LEFT AXILLARY REGION WAS CLEANED USING NORMAL SALINE AND PACKING WAS REPLACED. PROCEDURES PERFORMED: NONE CRITICAL CARE TIME: NONE I HAVE DISCUSSED THE PATIENT WITH THE ATTENDING PHYSICIAN DR. MARQUEZ AND HE AGREES WITH THE PATIENT'S PLAN OF CARE AND DISPOSITION. BASED ON HISTORY OF PRESENT ILLNESS, AND PHYSICAL EXAM, PATIENT WILL BE DISCHARGED HOME. SHARED DECISION MAKING: PATIENT INSTRUCTED TO FOLLOW UP WITH PRIMARY CARE PROVIDER IN 1-2 DAYS FOR RE-EVALUATION OF SYMPTOMS. PATIENT VERBALIZES UNDERSTANDING TO RETURN TO ED FOR NEW OR WORSENING SYMPTOMS OR IF FOLLOW UP WITH PCP CANNOT BE OBTAINED. PATIENT FEELS COMFORTABLE GOING HOME AT THIS TIME. ALL QUESTIONS ADDRESSED AT TIME OF DISCHARGE. Time of 1ST Reevaluation: 15:44 Reevaluation 1ST: Improved Patient Education/Counseling: Diagnosis, Treatment, Need For Follow Up Family Education/Counseling: Diagnosis, Treatment, Need For Follow Up Medical Screening: No EMC Exist At This Time Departure 1 Departure Time of Disposition: 15:44 Impression: Primary Impression: Wound check, abscess Disposition: 01 HOME / SELF CARE / HOMELESS Condition: Stable Additional Instructions: FOLLOW-UP WITH PCP IN 1 TO 2 DAYS. RETURN TO ED FOR ANY NEW OR WORSENING SYMPTOMS. Discharged With: Self Critical Care Note Critical Care Time?: No Stability Stability form required: No I personally scribed for SONIDO BANERJEE ([email or web address]) on 02/18/25 at 15:28. Electronically submitted by Markel Villagomez ([email or web address]). SONIDO BANERJEE Feb 18, 2025 15:28
== END 2025-02-18 15:43 | disposition home or self-care (01) ==
LOC: ER 14:45
DX: L02.412 Cutaneous abscess of left axilla (principal); Z79.1 Long term (current) use of non-steroidal anti-inflammatories (NSAID); Z79.899 Other long term (current) drug therapy

== ENCOUNTER 2025-02-22 08:30 | Emergency (ER) | payer MEDICAID ==
[~2025-02-22] VITALS: Ht 157.5 cm; Wt 101.9 kg
[2025-02-22 09:12] VITALS: BP 124/79; PULSE 91; RESP 20; TEMP 98.2; O2SAT 100
--- NOTE | 2025-02-22 09:31 | ED.PDOC ---
History of Present Illness(SKN HPI Comments 29 year old present for wound check. No complaints Chief Complaint: Wound Check Time Seen by MD: 08:43 Primary Care Provider: SINDI History of Present Illness: Nurses Notes, Medications, Allergies Allergies: Coded Allergies: NO KNOWN ALLERGIES (Unverified , 05/31/10) Home Meds Active Scripts Ibuprofen (Ibuprofen) 800 Mg Tab, 1 TAB PO TID, #20 TAB Prov:SONIDO BANERJEE 02/16/25 Sulfamethoxazole W/Trimethopri (Bactrim Ds Tablet) 1 Tab Tb, 1 TAB PO BID for 10 Days, #20 TAB Prov:SONIDO BANERJEE 02/16/25 Reported Medications Ascorbic Acid (VITAMIN C TABLET) 500 Mg Tb, 1 TAB PO DAILY, TAB 07/02/23 Ferrous Sulfate (Iron) 325 Mg Tab, 325 MG PO DAILY, TAB 07/02/23 Norgestimate-Ethinyl Estradiol (Norgestimate/Eth... 0.18/0.215/0.25 mg-25 Mcg) 1 Tab Tab, 1 TAB PO DAILY, #1 TAB 07/02/23 Information Source: Patient Mode of Arrival: Ambulatory Past Medical History PAST MEDICAL HISTORY: Denies Surgical History: Denies all surgeries CHARGEBACK SPECIALIST History: No Pertinent CHARGEBACK SPECIALIST History Family History Family History: Reviewed,noncontributory to illness Social History Smoker: Non-Smoker Alcohol: Denies ETOH Use Drugs: Denies Drug Use Lives In: Home All Other Systems: Reviewed and Negative (Per HPI) Physical Exam General Appearance: No Apparent Distress, Normal HEENT: Normal ENT Inspection, Pharynx Normal, TMs Normal Neck: Full Range of Motion, Non-Tender, Normal, Normal Inspection Respiratory: Chest Non-Tender, Lungs Clear, No Accessory Muscle Use, No Respiratory Distress, Normal Breath Sounds Cardiovascular: No Edema, No JVD, No Murmur, No Gallop, Normal Peripheral Pulses, Regular Rate/Rhythm Breast Exam: Deferred Gastrointestinal: No Organomegaly, Non Tender, No Pulsatile Mass, Normal Bowel Sounds, Soft Genitalia: Deferred Pelvic: Deferred Rectal: Deferred Extremities: No calf tenderness, Normal capillary refill, Normal inspection, Normal range of motion, Non-tender, No pedal edema Musculoskeletal : Apperance: Normal Neurologic: Alert, drum sealer II-XII nml as Tested, No Motor Deficits, Normal Affect, Normal Mood, No Sensory Deficits Cerebellar Function: Normal Reflexes: Normal Skin: Dry, Normal Color, Warm Lymphatic: No Adenopathy Was a procedure done? Was a procedure done?: No Differential Diagnosis (INTG) Differential Diagnosis: Other X-Ray, Labs, Meds, VS Vital Signs Date Time Temp Pulse Resp B/P (MAP) Pulse Ox O2 Delivery O2 Flow Rate FiO2 02/22/25 09:12 98.2 91 20 124/79 (94) 100 98.2 02/22/25 08:36 98.2 91 20 124/69 (87) 100 98.2 X-Ray, Labs, Meds, VS Comment No signs of infection. No signs of new abscess formation. Skin appears clean healthy healing without complications Advised to return in two days for wound check Time of 1ST Reevaluation: 09:30 Reevaluation 1ST: Improved Patient Education/Counseling: Diagnosis, Treatment Family Education/Counseling: Diagnosis, Treatment Departure 1 Departure Time of Disposition: 09:30 Impression: Primary Impression: Wound check, abscess Disposition: 01 HOME / SELF CARE / HOMELESS Condition: Stable Critical Care Note Critical Care Time?: No Stability Stability form required: No Heart Score Heart Score: Heart Score Response (Comments) Value History N/A 0 EKG N/A 0 Age N/A 0 Risk Factors N/A 0 Troponin N/A 0 Total 0 MANNY GOYAL NP Feb 22, 2025 09:31
== END 2025-02-22 09:39 | disposition home or self-care (01) ==
LOC: ER 08:36
DX: L02.414 Cutaneous abscess of left upper limb (principal); Z48.817 Encounter for surgical aftercare following surgery on the skin and subcutaneous tissue

== ENCOUNTER 2025-02-25 19:22 | Emergency (ER) | payer MEDICAID ==
[~2025-02-25] VITALS: Ht 157.5 cm; Wt 95.6 kg
[2025-02-25 20:28] VITALS: BP 132/84; PULSE 85; RESP 16; TEMP 97.8; O2SAT 100
--- NOTE | 2025-02-25 21:00 | ED.PDOC ---
History of Present Illness(SKN HPI Comments RETURNS TO ED FOR WOUND CARE TO THE LEFT AXILLA. PATIENT REPORTS THAT SHE HAS ABSCESS TO THE LEFT AXILLA THAT HAS BEEN DRAINED AND CURRENTLY NEEDS DRESSING CHANGES. NOTED PACKING STRIP AND GAUZE PAD WITH MODERATE DRAINAGE. NO ODOR NOTED. PATIENT CURRENTLY ON ANTIBIOTICS. DENIES FEVERS, CHILLS, NAUSEA OR VOMITING Chief Complaint: Wound Check Time Seen by MD: 19:46 Primary Care Provider: SINDI History of Present Illness: Nurses Notes, Medications, Allergies Allergies: Coded Allergies: NO KNOWN ALLERGIES (Unverified , 05/31/10) Home Meds Active Scripts Ibuprofen (Ibuprofen) 800 Mg Tab, 1 TAB PO TID, #20 TAB Prov:SONIDO BANERJEE 02/16/25 Sulfamethoxazole W/Trimethopri (Bactrim Ds Tablet) 1 Tab Tb, 1 TAB PO BID for 10 Days, #20 TAB Prov:SONIDO BANERJEE 02/16/25 Reported Medications Ascorbic Acid (VITAMIN C TABLET) 500 Mg Tb, 1 TAB PO DAILY, TAB 07/02/23 Ferrous Sulfate (Iron) 325 Mg Tab, 325 MG PO DAILY, TAB 07/02/23 Norgestimate-Ethinyl Estradiol (Norgestimate/Eth... 0.18/0.215/0.25 mg-25 Mcg) 1 Tab Tab, 1 TAB PO DAILY, #1 TAB 07/02/23 Information Source: Patient Mode of Arrival: Ambulatory Past Medical History PAST MEDICAL HISTORY: Denies Surgical History: Denies all surgeries SHEAR SCRAPMAN History: No Pertinent SHEAR SCRAPMAN History Family History Family History: Reviewed,noncontributory to illness Social History Smoker: Non-Smoker Alcohol: Denies ETOH Use Drugs: Denies Drug Use Lives In: Home Constitutional: denies: chills, diaphoresis, fatigue, fever, malaise, sweats, weakness, others EENTM: denies: blurred vision, double vision, ear bleeding, ear discharge, ear drainage, ear pain, ear ringing, eye pain, eye redness, hearing loss, mouth pain, mouth swelling, nasal discharge, nose bleeding, nose congestion, nose pain, photophobia, tearing, throat pain, throat swelling, voice changes, others Physical Exam General Appearance: No Apparent Distress, Normal HEENT: Normal ENT Inspection, Pharynx Normal, TMs Normal Neck: Full Range of Motion, Non-Tender, Normal, Normal Inspection Respiratory: Chest Non-Tender, Lungs Clear, No Accessory Muscle Use, No Respiratory Distress, Normal Breath Sounds Cardiovascular: No Edema, No JVD, No Murmur, No Gallop, Normal Peripheral Pulses, Regular Rate/Rhythm Breast Exam: Deferred Gastrointestinal: No Organomegaly, Non Tender, No Pulsatile Mass, Normal Bowel Sounds, Soft Genitalia: Deferred Pelvic: Deferred Rectal: Deferred Extremities: No calf tenderness, Normal capillary refill, Normal inspection, Normal range of motion, Non-tender, No pedal edema Musculoskeletal : Apperance: Normal Neurologic: Alert, house painting instructor II-XII nml as Tested, No Motor Deficits, Normal Affect, Normal Mood, No Sensory Deficits Cerebellar Function: Normal Reflexes: Normal Skin: Dry, Normal Color, Warm, Wounds (NOTED LEFT AXILLA 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 Was a procedure done?: Yes Sedation Sedation?: No Informed consent obtained: Yes Incision and Drainage Incision and Drainage: Abscess Location LEFT AXILLARY Incision and Wound: Pus Informed consent obtained: Yes Risks/benefits/alt described: Yes Notes 1/4 INCH PACKING REPLACED PATIENT TOLERATED WELL MINIMAL BLOOD LOSS Differential Diagnosis (INTG) Differential Diagnosis: Cellulitis, Hematoma X-Ray, Labs, Meds, VS Vital Signs Date Time Temp Pulse Resp B/P (MAP) Pulse Ox O2 Delivery O2 Flow Rate FiO2 02/25/25 20:28 97.8 85 16 132/84 (100) 100 97.8 02/25/25 20:28 85 16 100 Room Air 02/25/25 19:43 97.8 85 16 132/84 (100) 100 97.8 X-Ray, Labs, Meds, VS Comment SEE PROCEDURE NOTE. PATIENT CONTINUE HER ANTIBIOTICS PRESCRIBED. FOLLOW UP WITH HER PCP OR BACK HERE OR URGENT CARE IN 2 DAYS FOR WOUND RE-EVALUATION AND PACKING REMOVAL. [id number] TYLENOL OR MOTRIN NEEDED FOR THE PAIN. ER RETURN PRECAUTIONS GIVEN PATIENT INDICATES UNDERSTANDING AGREES WITH DISCHARGE PLAN OF CARE. Time of 1ST Reevaluation: 21:04 Reevaluation 1ST: Improved Patient Education/Counseling: Diagnosis, Treatment, Prognosis, Need For Follow Up Family Education/Counseling: No Family Present Departure 1 Departure Time of Disposition: 21:07 Impression: Primary Impression: Abscess of left axilla Disposition: 01 HOME / SELF CARE / HOMELESS Condition: Stable Discharged With: Self Critical Care Note Critical Care Time?: No Stability Stability form required: MIKY Davies Feb 25, 2025 21:00
== END 2025-02-25 21:15 | disposition home or self-care (01) ==
LOC: ER 19:22
DX: L02.412 Cutaneous abscess of left axilla (principal)
CPT/HCPCS: 10060

== ENCOUNTER 2025-02-27 08:56 | Emergency (ER) | payer MEDICAID ==
[~2025-02-27] VITALS: Ht 157.5 cm; Wt 102.3 kg
[2025-02-27 09:09] VITALS: BP 147/72; PULSE 85; RESP 19; TEMP 99.4; O2SAT 96
[2025-02-27] MEDS ORDERED: CEFD300C2 PO (09:50)
--- NOTE | 2025-02-27 09:51 | ED.PDOC ---
History of Present Illness(SKN HPI Comments 29-year-old female presented to the fast track complaining of wound draining to the left arm paid which started on 02/12/2025 sent by her PCP for further evaluation Chief Complaint: Wound Check Time Seen by MD: 09:22 Primary Care Provider: SINDI Allergies: Coded Allergies: NO KNOWN ALLERGIES (Unverified , 05/31/10) Home Meds Active Scripts Ibuprofen (Ibuprofen) 800 Mg Tab, 1 TAB PO TID, #20 TAB Prov:SONIDO BANERJEE 02/16/25 Sulfamethoxazole W/Trimethopri (Bactrim Ds Tablet) 1 Tab Tb, 1 TAB PO BID for 10 Days, #20 TAB Prov:SONIDO BANERJEE 02/16/25 Reported Medications Ascorbic Acid (VITAMIN C TABLET) 500 Mg Tb, 1 TAB PO DAILY, TAB 07/02/23 Ferrous Sulfate (Iron) 325 Mg Tab, 325 MG PO DAILY, TAB 07/02/23 Norgestimate-Ethinyl Estradiol (Norgestimate/Eth... 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 History: No Pertinent [employer] History Family History Family History: Reviewed,noncontributory to illness Social History Smoker: Non-Smoker Alcohol: Denies ETOH Use Drugs: Denies Drug Use Lives In: Home Constitutional: denies: chills, diaphoresis, fatigue, fever, malaise, sweats, weakness, others EENTM: denies: blurred vision, double vision, ear bleeding, ear discharge, ear drainage, ear pain, ear ringing, eye pain, eye redness, hearing loss, mouth pain, mouth swelling, nasal discharge, nose bleeding, nose congestion, nose pain, photophobia, tearing, throat pain, throat swelling, voice changes, others Respiratory: denies: cough, hemoptysis, orthopnea, SOB at rest, shortness of breath, SOB with excertion, stridor, wheezing, others Cardiovascular: denies: chest pain, dizzy spells, diaphoresis, Dyspnea on exertion, edema, irregular heart beat, left arm pain, lightheadedness, palpitations, PND, syncope, others Gastrointestinal: denies: abdomen distended, abdominal pain, blood streaked bowels, constipated, diarrhea, dysphagia, difficulty swallowing, hematemesis, melena, nausea, poor appetite, poor fluid intake, rectal bleeding, rectal pain, vomiting, others Genitourinary: denies: abnormal vagina bleeding, burning, dyspareunia, dysuria, flank pain, frequency, hematuria, incontinence, pain, , vagina discharge, urgency, others Neurological: denies: dizziness, fainting, headache, left sided numbness, left sided weakness, numbness, paresthesia, pre-existing deficit, right sided numbness, right sided weakness, seizure, speech problems, tingling, tremors, weakness, others Integumetry: reports: lesions, lumps, wounds; denies: bruises, change in color, change in hair/nails, dryness, laceration, rash, others Allergic/Immunocompromised: denies: Difficulty Healing, Frequent Infections, Hives, Itching, others Hematologic/Lymphatic: denies: anemia, blood clots, easy bleeding, easy bruising, swollen glands, others Endocrine: denies: excessive hunger, excessive sweating, excessive thirst, excessive urination, flushing, intolerance to cold, intolerance to heat, unexplained weight gain, unexplained weight loss, others Psychiatric: denies: anxiety, bipolar disorder, depression, hopeless, panic disorder, schizophrenia, sleepless, suicidal, others All Other Systems: Reviewed and Negative Physical Exam General Appearance: Obese HEENT: Normal ENT Inspection, Pharynx Normal, TMs Normal Neck: Full Range of Motion, Non-Tender, Normal, Normal Inspection Respiratory: Chest Non-Tender, Lungs Clear, No Accessory Muscle Use, No Respiratory Distress, Normal Breath Sounds Cardiovascular: No Edema, No JVD, No Murmur, No Gallop, Normal Peripheral Pulses, Regular Rate/Rhythm Breast Exam: Deferred Gastrointestinal: No Organomegaly, Non Tender, No Pulsatile Mass, Normal Bowel Sounds, Soft Genitalia: Deferred Pelvic: Deferred Rectal: Deferred Extremities: No pedal edema, Other (Left armpit abscess still draining drain inside minimal induration minimal pain at this time) Neurologic: Alert, radiator core tester II-XII nml as Tested, No Motor Deficits, Normal Affect, Normal Mood, No Sensory Deficits Cerebellar Function: Normal Reflexes: Normal Skin: Dry, Normal Color, Warm Peripheral Pulses: 1+ carotid (R), 1+ carotid (L) Lymphatic: No Adenopathy Was a procedure done? Was a procedure done?: No Differential Diagnosis (INTG) Differential Diagnosis: Cellulitis, Puncture Wound, Other (Drained abscess) Differential Diagnosis: Abscess, Cellulitis Differential Diagnosis: N/A Abscess: N/A Differential Diagnosis: N/A X-Ray, Labs, Meds, VS Vital Signs Date Time Temp Pulse Resp B/P (MAP) Pulse Ox O2 Delivery O2 Flow Rate FiO2 02/27/25 09:09 99.4 85 19 147/72 (97) 96 99.4 02/27/25 09:09 99.4 85 19 147/72 (97) 96 99.4 02/27/25 09:09 85 19 96 Room Air X-Ray, Labs, Meds, VS Comment Course in the Fast[facility] eventful Patient came in with a an abscess to her left arm pain which has been incised and drained and packed The drain will be current but left in place The wound has been cleaned with peroxide and dressing applied Patient to follow up in three days Time of 1ST Reevaluation: 09:47 Reevaluation 1ST: Improved Consultation: PCP Patient Education/Counseling: Diagnosis, Treatment, Prognosis, Need For Follow Up Family Education/Counseling: Diagnosis, Treatment, Prognosis, Need For Follow Up, No Family Present Departure 1 Departure Time of Disposition: 09:49 Impression: Primary Impression: Abscess of left axilla Disposition: 01 HOME / SELF CARE / HOMELESS Condition: Fair Additional Instructions: Keep the dressing clean and dry Follow up in three days e-Prescriptions Cefdinir (Cefdinir) 300 Mg Cap 1 CAP PO BID for 7 Days, #14 CAP Prov: LENA LAZARO MD 02/27/25 Discharged With: Self Critical Care Note Critical Care Time?: No Stability Stability form required: No Heart Score Heart Score: Heart Score Response (Comments) Value History N/A 0 EKG N/A 0 Age <45 0 Risk Factors No known risk factors 0 Troponin N/A 0 Total 0 LENA LAZARO MD Feb 27, 2025 09:51
== END 2025-02-27 09:57 | disposition home or self-care (01) ==
LOC: ER 08:56
DX: L02.412 Cutaneous abscess of left axilla (principal)

== ENCOUNTER 2025-03-03 16:43 | Emergency (ER) | payer MEDICAID ==
[~2025-03-03] VITALS: Ht 157.5 cm; Wt 101.7 kg
[~2025-03-03 16:43] MED LIST changes: +CEFD300C2 PO
--- NOTE | 2025-03-03 17:06 | ED.PDOC ---
History of Present Illness HPI Comments A 29 YEAR OLD FEMALE PRESENTS TO THE ED WITH COMPLAINT OF WOUND RECHECK. PATIENT STATES SHE HAD AN ABSCESS DRAINED ON HER LEFT AXILLARY REGION ABOUT 1.5 WEEKS AGO AND IS HERE IN THE ED TO HAVE THIS WOUND RECHECKED. PATIENT DENIES FEVER, CHILLS, SHORTNESS OF BREATH, CHEST PAIN, ABDOMINAL PAIN, NAUSEA, VOMITIN G, HEADACHE, OR OTHER COMPLAINTS. NO OTHER SYMPTOMS OR MODIFYING FACTORS AT THIS TIME. PATIENT IS ALERT, ORIENTED X 4, AND HAS STEADY GAIT. Chief Complaint: Wound Check Time Seen by MD: 16:56 Primary Care Provider: SINDI Woodson Notes: Nurses Notes, Medications, Allergies Allergies: Coded Allergies: NO KNOWN ALLERGIES (Unverified , 05/31/10) Home Meds Active Scripts Cefdinir (Cefdinir) 300 Mg Cap, 1 CAP PO BID for 7 Days, #14 CAP Prov:LENA LAZARO MD 02/27/25 Ibuprofen (Ibuprofen) 800 Mg Tab, 1 TAB PO TID, #20 TAB Prov:SONIDO BANERJEE 02/16/25 Sulfamethoxazole W/Trimethopri (Bactrim Ds Tablet) 1 Tab Tb, 1 TAB PO BID for 10 Days, #20 TAB Prov:SONIDO BANERJEE 02/16/25 Reported Medications Ascorbic Acid (VITAMIN C TABLET) 500 Mg Tb, 1 TAB PO DAILY, TAB 07/02/23 Ferrous Sulfate (Iron) 325 Mg Tab, 325 MG PO DAILY, TAB 07/02/23 Norgestimate-Ethinyl Estradiol (Norgestimate/Eth... 0.18/0.215/0.25 mg-25 Mcg) 1 Tab Tab, 1 TAB PO DAILY, #1 TAB 07/02/23 Information Source: Patient Mode of Arrival: Ambulatory Severity: None Timing: Days Duration: Since onset, Days Prehospital treatment: None Medication Refill: For: Other (WOUND RECHECK OF LEFT AXILLARY REGION) Past Medical History PAST MEDICAL HISTORY: Denies Surgical History: Denies all surgeries CHARGE WEIGHER History: No Pertinent CHARGE WEIGHER History Family History Family History: Reviewed,noncontributory to illness Social History Smoker: Non-Smoker Alcohol: Denies ETOH Use Drugs: Denies Drug Use Lives In: Home Constitutional: denies: chills, diaphoresis, fatigue, fever, malaise, sweats, weakness, others EENTM: denies: blurred vision, double vision, ear bleeding, ear discharge, ear drainage, ear pain, ear ringing, eye pain, eye redness, hearing loss, mouth pain, mouth swelling, nasal discharge, nose bleeding, nose congestion, nose pain, photophobia, tearing, throat pain, throat swelling, voice changes, others Respiratory: denies: cough, hemoptysis, orthopnea, SOB at rest, shortness of breath, SOB with excertion, stridor, wheezing, others Cardiovascular: denies: chest pain, dizzy spells, diaphoresis, Dyspnea on exertion, edema, irregular heart beat, left arm pain, lightheadedness, palpitations, PND, syncope, others Gastrointestinal: denies: abdomen distended, abdominal pain, blood streaked bowels, constipated, diarrhea, dysphagia, difficulty swallowing, hematemesis, melena, nausea, poor appetite, poor fluid intake, rectal bleeding, rectal pain, vomiting, others Genitourinary: denies: abnormal vagina bleeding, burning, dyspareunia, dysuria, flank pain, frequency, hematuria, incontinence, pain, , vagina disc harge, urgency, others Neurological: denies: dizziness, fainting, headache, left sided numbness, left sided weakness, numbness, paresthesia, pre-existing deficit, right sided numbness, right sided weakness, seizure, speech problems, tingling, tremors, weakness, others Musculoskeletal: denies: back pain, gout, joint pain, joint swelling, muscle pain, muscle stiffness, neck pain, others Integumetry: reports: wounds (ABSCESS ON LEFT AXILLA. ); denies: bruises, change in color, change in hair/nails, dryness, laceration, lesions, lumps, rash, others Allergic/Immunocompromised: denies: Difficulty Healing, Frequent Infections, Hives, Itching, others Hematologic/Lymphatic: denies: anemia, blood clots, easy bleeding, easy bruising, swollen glands, others Endocrine: denies: excessive hunger, excessive sweating, excessive thirst, excessive urination, flushing, intolerance to cold, intolerance to heat, unexplained weight gain, unexplained weight loss, others Psychiatric: denies: anxiety, bipolar disorder, depression, hopeless, panic disorder, schizophrenia, sleepless, suicidal, others All Other Systems: Reviewed and Negative Physical Exam General Appearance: No Apparent Distress, Obese HEENT: Normal ENT Inspection, PERRL/EOMI, Pharynx Normal, TMs Normal Neck: Full Range of Motion, Non-Tender, Normal, Normal Inspection Respiratory: Chest Non-Tender, Lungs Clear, No Accessory Muscle Use, No Respiratory Distress, Normal Breath Sounds Cardiovascular: No Edema, No JVD, No Murmur, No Gallop, Normal Peripheral Pulses, Regular Rate/Rhythm Breast Exam: Deferred Gastrointestinal: No Organomegaly, Non Tender, No Pulsatile Mass, Normal Bowel Sounds, Soft Genitalia: Deferred Pelvic: Deferred Rectal: Deferred Extremities: No calf tenderness, Normal capillary refill, Normal inspection, Normal range of motion, Non-tender, No pedal edema Musculoskeletal : Apperance: Normal Neurologic: Alert, orbitread operator II-XII nml as Tested, No Motor Deficits, Normal Affect, Normal Mood, No Sensory Deficits Cerebellar Function: Normal Reflexes: Normal Skin: Dry, Normal Color, Warm, Wounds (LEFT AXILLA ABSCESS WOUND HEALING, NO REDNESS, SWELLING AND PUS DRAINAGE. ) Peripheral Pulses: 2+ carotid (R), 2+ carotid (L) Lymphatic: No Adenopathy Was a procedure done? Was a procedure done?: No Differential Dx Considerations may include: ABSCESS WOUND RECHECKED, WOUND INFECTION X-Ray, Labs, Meds, VS Vital Signs Date Time Temp Pulse Resp B/P (MAP) Pulse Ox O2 Delivery O2 Flow Rate FiO2 03/03/25 17:15 88 18 98 Room Air 03/03/25 17:15 98.1 88 18 113/63 (80) 98 98.1 03/03/25 16:54 98.1 88 18 113/63 (80) 98 98.1 X-Ray, Labs, Meds, VS Comment EXTERNAL MEDICAL RECORDS REVIEWED: [NONE] INDEPENDENT HISTORIANS: [NONE] SOCIAL DETERMINANTS OF HEALTH: [NONE] LABS ORDERED: NONE REVIEWED AND INTERPRETED RESULTS: NONE IMAGING ORDERED: NONE TREATMENTS ORDERED: LEFT AXILLA WOUND CLEANED WITH NORMAL SALINE AND WRAPPED. PROCEDURES PERFORMED: NONE CRITICAL CARE TIME: NONE I HAVE DISCUSSED THE PATIENT WITH THE ATTENDING PHYSICIAN DR. ABRAHAM AND HE AGREES WITH THE PATIENT'S PLAN OF CARE AND DISPOSITION. BASED ON HISTORY OF PRESENT ILLNESS, AND PHYSICAL EXAM, PATIENT WILL BE DISCHARGED HOME. SHARED DECISION MAKING: PATIENT INSTRUCTED TO FOLLOW UP WITH PRIMARY CARE PROVIDER IN 1-2 DAYS FOR RE-EVALUATION OF SYMPTOMS. PATIENT VERBALIZES UNDERSTANDING TO RETURN TO ED FOR NEW OR WORSENING SYMPTOMS OR IF FOLLOW UP WITH PCP CANNOT BE OBTAINED. PATIENT FEELS COMFORTABLE GOING HOME AT THIS TIME. ALL QUESTIONS ADDRESSED AT TIME OF DISCHARGE. Time of 1ST Reevaluation: 17:34 Reevaluation 1ST: Improved Patient Education/Counseling: Diagnosis, Treatment, Need For Follow Up Family Education/Counseling: Diagnosis, Treatment, Need For Follow Up Medical Screening: No EMC Exist At This Time Departure 1 Departure Time of Disposition: 17:50 Impression: Primary Impression: Encounter for wound re-check Disposition: 01 HOME / SELF CARE / HOMELESS Condition: Stable Additional Instructions: FOLLOW-UP WITH PCP IN 1 TO 2 DAYS. RETURN TO ED FOR ANY NEW OR WORSENING SYMPTOMS. Discharged With: Self Critical Care Note Critical Care Time?: No Stability Stability form required: No I personally scribed for SONIDO BANERJEE ([email or web address]) on 03/03/25 at 17:06. Electronically submitted by Markel Villagomez ([email or web address]). SONIDO BANERJEE Mar 03, 2025 17:06
[2025-03-03 17:15] VITALS: BP 113/63; PULSE 88; RESP 18; TEMP 98.1; O2SAT 98
== END 2025-03-03 17:35 | disposition home or self-care (01) ==
LOC: ER 16:49
DX: Z48.00 Encounter for change or removal of nonsurgical wound dressing (principal); Z79.1 Long term (current) use of non-steroidal anti-inflammatories (NSAID); Z79.899 Other long term (current) drug therapy

== ENCOUNTER 2025-04-18 18:21 | Emergency (ER) | payer MEDICAID ==
[~2025-04-18] VITALS: Ht 157.5 cm; Wt 103.0 kg
--- NOTE | 2025-04-18 18:56 | ED.PDOC ---
Musculoskeletal HPI Comments 29 year old female presents to ER with complaints of right leg pain x 1 day. Patient states she fell onto her right leg onto dirt ground while attempting to get into her car at 5 pm prior to arrival to ER and has since been experiencing 5/10 right knee and right tib/fib pain. Denies head injury/LOC. Notes she has not been able to bear weight on right leg since falling due to right knee and right tib-fib pain. Denies hip pain, numbness/tingling or any further symptoms/complaints Chief Complaint: Lower Extremity Time Seen by MD: 18:27 Primary Care Provider: SINDI Reviewed Notes: Nurses Notes, Medications, Allergies Allergies: Coded Allergies: NO KNOWN ALLERGIES (Unverified , 05/31/10) Home Meds Active Scripts Acetaminophen (Acetaminophen) 500 Mg Tab, 500 MG PO Q4HPRN, #30 TAB 0 Refills Prov:BENJAMIN HEATON 04/18/25 Cefdinir (Cefdinir) 300 Mg Cap, 1 CAP PO BID for 7 Days, #14 CAP Prov:LENA LAZARO MD 02/27/25 Ibuprofen (Ibuprofen) 800 Mg Tab, 1 TAB PO TID, #20 TAB Prov:SONIDO BANERJEE 02/16/25 Sulfamethoxazole W/Trimethopri (Bactrim Ds Tablet) 1 Tab Tb, 1 TAB PO BID for 10 Days, #20 TAB Prov:SONIDO BANERJEE 02/16/25 Reported Medications Ascorbic Acid (VITAMIN C TABLET) 500 Mg Tb, 1 TAB PO DAILY, TAB 07/02/23 Ferrous Sulfate (Iron) 325 Mg Tab, 325 MG PO DAILY, TAB 07/02/23 Norgestimate-Ethinyl Estradiol (Norgestimate/Eth... 0.18/0.215/0.25 mg-25 Mcg) 1 Tab Tab, 1 TAB PO DAILY, #1 TAB 07/02/23 Information Source: Patient Mode of Arrival: Ambulatory Past Medical History PAST MEDICAL HISTORY: Denies Surgical History: Denies all surgeries INCENDIARIES SUPERVISOR History: No Pertinent INCENDIARIES SUPERVISOR History Family History Family History: Unknown Social History Smoker: Non-Smoker Alcohol: Denies ETOH Use Drugs: Denies Drug Use Lives In: Home Constitutional: denies: chills, diaphoresis, fatigue, fever, malaise, sweats, weakness, others EENTM: denies: blurred vision, double vision, ear bleeding, ear discharge, ear drainage, ear pain, ear ringing, eye pain, eye redness, hearing loss, mouth pain, mouth swelling, nasal discharge, nose bleeding, nose congestion, nose pain, photophobia, tearing, throat pain, throat swelling, voice changes, others Respiratory: denies: cough, hemoptysis, orthopnea, SOB at rest, shortness of breath, SOB with excertion, stridor, wheezing, others Cardiovascular: denies: chest pain, dizzy spells, diaphoresis, Dyspnea on exertion, edema, irregular heart beat, left arm pain, lightheadedness, palpitations, PND, syncope, others Gastrointestinal: denies: abdomen distended, abdominal pain, blood streaked bowels, constipated, diarrhea, dysphagia, difficulty swallowing, hematemesis, melena, nausea, poor appetite, poor fluid intake, rectal bleeding, rectal pain, vomiting, others Genitourinary: denies: abnormal vagina bleeding, burning, dyspareunia, dysuria, flank pain, frequency, hematuria, incontinence, pain, , vagina discharge, urgency, others Neurological: denies: dizziness, fainting, headache, left sided numbness, left sided weakness, numbness, paresthesia, pre-existing deficit, right sided numbness, right sided weakness, seizure, speech problems, tingling, tremors, weakness, others Musculoskeletal: reports: others (As stated in HPI) Integumetry: denies: bruises, change in color, change in hair/nails, dryness, laceration, lesions, lumps, rash, wounds, others Allergic/Immunocompromised: denies: Difficulty Healing, Frequent Infections, Hives, Itching, others Hematologic/Lymphatic: denies: anemia, blood clots, easy bleeding, easy bruising, swollen glands, others Endocrine: denies: excessive hunger, excessive sweating, excessive thirst, excessive urination, flushing, intolerance to cold, intolerance to heat, unexplained weight gain, unexplained weight loss, others Psychiatric: denies: anxiety, bipolar disorder, depression, hopeless, panic disorder, schizophrenia, sleepless, suicidal, others Physical Exam General Appearance: No Apparent Distress, Obese HEENT: PERRL/EOMI Neck: Full Range of Motion, Non-Tender, Normal, Normal Inspection Respiratory: Chest Non-Tender, Lungs Clear, No Accessory Muscle Use, No Respiratory Distress, Normal Breath Sounds Cardiovascular: No Murmur, No Gallop, Regular Rate/Rhythm Breast Exam: Deferred Gastrointestinal: NOT DONE Genitalia: Deferred Pelvic: Deferred Rectal: Deferred Extremities: No calf tenderness, Normal capillary refill, Normal range of motion Musculoskeletal : Extremity Location: Knee (TTP/mild swelling noted to right anterior knee. Positive anterior drawer test right knee. Negative Joel's test right knee. Pulses intact. Slight TTP also noted to right mid tib-fib. No TTP to right hip/other TTP to right lower extremity noted. Pulses intact. Patient able to bear minimal weight on right leg due to pain localized to right knee and right mid tib-fib) Neurologic: Alert, food science professor II-XII nml as Tested, No Motor Deficits, Normal Affect, Normal Mood, No Sensory Deficits Cerebellar Function: Normal Reflexes: Normal Skin: Dry, Normal Color, Warm Peripheral Pulses: 2+ femoral (R), 2+ femoral (L), 2+ dorsalis pedis (R), 2+ dorsalis pedis (L) Lymphatic: No Adenopathy Was a procedure done? Was a procedure done?: No Sedation Sedation?: No Differential Diagnosis EXT Differential Diagnosis: Fracture, Dislocation, Neurovascular injury X-Ray, Labs, Meds, VS Vital Signs Date Time Temp Pulse Resp B/P (MAP) Pulse Ox O2 Delivery O2 Flow Rate FiO2 04/18/25 19:18 99 18 96 Room Air 04/18/25 19:18 99.1 99 18 127/74 (91) 96 99.1 04/18/25 18:32 99.1 99 18 127/74 (91) 96 99.1 PATIENT: ERICK DE LA ROSA ACCT: [id number] UNIT: [id number] : 1995 LOC: ER ROOM / BED: / AGE / SEX: 29 / F ADM STATUS: REG ER SERVICE 379 ORDERING PHYSICIAN: BENJAMIN HEATON PROCEDURE(s): RTBFB - R TIB FIB XRAY REASON: right tib-fib pain ORDER NUMBER(s): [id number], ACCESSION NUMBER(s): [id number] EXAM: XY R TIB FIB XRAY CLINICAL INDICATION: right tib-fib pain TECHNIQUE: XY R TIB FIB XRAY Comparison: None FINDINGS/IMPRESSION: There is no evidence of acute fracture or dislocation. The visualized joint space is well maintained. The alignment is anatomical. There is no radiopaque foreign body. ATED BY: JENNY SIMMONS MD DICTATED DATE/TIME: 04/18/251929 SIGNED BY: JENNY SIMMONS MD SIGNED DATE/TIME: 04/18/251929 CC: PATIENT: ERICK DE LA ROSA ACCT: [id number] UNIT: [id number] : 1995 LOC: ER ROOM / BED: / AGE / SEX: 29 / F ADM STATUS: REG ER SERVICE 51 ORDERING PHYSICIAN: BENJAMIN HEATON PROCEDURE(s): RKN3 - R KNEE 3V XRAY REASON: right knee pain ORDER NUMBER(s): [id number], ACCESSION NUMBER(s): [id number] EXAM: XY R KNEE 3V XRAY CLINICAL INDICATION: right knee pain TECHNIQUE: XY R KNEE 3V XRAY Comparison: None FINDINGS/IMPRESSION: There is no evidence of acute fracture or dislocation. The visualized joint space is well maintained. The alignment is anatomical. There is no radiopaque foreign body. ATED BY: JENNY SIMMONS MD DICTATED DATE/TIME: 04/18/251928 SIGNED BY: JENNY SIMMONS MD SIGNED DATE/TIME: 04/18/251928 CC: Right knee x-ray reviewed Right tib-fib x-ray reviewed Right knee immobilizer applied Crutches ordered. Patient educated on proper use and advised on use at all times Patient neurovascularly intact and reported improvement in symptoms prior to discharge Advised on rest/no strenuous activity and alternate ice on/off as needed for pain/swelling Advised to f/u with PCP and orthopedics in 1-2 days Patient verbalized understanding and agreeable with current plan of care Advised to return to ER immediately if symptoms worsen Images Reviewed?: Images reviewed and evaluated by me Time of 1ST Reevaluation: 18:44 Reevaluation 1ST: N/A Patient Education/Counseling: Diagnosis, Treatment, Prognosis, Need For Follow Up Family Education/Counseling: No Family Present Departure 1 Departure Time of Disposition: 19:02 Impression: Primary Impression: Right knee sprain Qualified Codes: S83.91XA - Sprain of unspecified site of right knee, initial encounter Additional Impression: Contusion of right lower extremity Qualified Codes: S80.11XA - Contusion of right lower leg, initial encounter Disposition: HOME / SELF CARE / HOMELESS Condition: Stable e-Prescriptions Acetaminophen (Acetaminophen) 500 Mg Tab 500 MG PO Q4HPRN, #30 TAB 0 Refills Prov: BENJAMIN HEATON 04/18/25 Discharged With: Friend Critical Care Note Critical Care Time?: No Stability Stability form required: No Heart Score Heart Score: Heart Score Response (Comments) Value History N/A 0 EKG N/A 0 Age N/A 0 Risk Factors N/A 0 Troponin N/A 0 Total 0 BENJAMIN HEATON April 18, 2025 18:56
[2025-04-18] MEDS ORDERED: ACET500T58 PO (19:03)
[2025-04-18 19:18] VITALS: BP 127/74; PULSE 99; RESP 18; TEMP 99.1; O2SAT 96
--- NOTE | 2025-04-18 19:32 | DVH ---
EXAM: XY R KNEE 3V XRAY CLINICAL INDICATION: right knee pain TECHNIQUE: XY R KNEE 3V XRAY Comparison: None FINDINGS/IMPRESSION: There is no evidence of acute fracture or dislocation. The visualized joint space is well maintained. The alignment is anatomical. There is no radiopaque foreign body.
--- NOTE | 2025-04-18 19:32 | DVH ---
EXAM: XY R TIB FIB XRAY CLINICAL INDICATION: right tib-fib pain TECHNIQUE: XY R TIB FIB XRAY Comparison: None FINDINGS/IMPRESSION: There is no evidence of acute fracture or dislocation. The visualized joint space is well maintained. The alignment is anatomical. There is no radiopaque foreign body.
== END 2025-04-18 19:50 | disposition home or self-care (01) ==
LOC: ER 18:26
DX: S83.8X1A Sprain of other specified parts of right knee, initial encounter (principal); S80.11XA Contusion of right lower leg, initial encounter; S80.01XA Contusion of right knee, initial encounter; W18.39XA Other fall on same level, initial encounter; Y93.89 Activity, other specified; Y92.89 Other specified places as the place of occurrence of the external cause; Y99.9 Unspecified external cause status
CPT/HCPCS: 29505; 73562; 73590

== ENCOUNTER 2025-06-30 17:13 | Emergency (ER) | payer MEDICAID ==
[~2025-06-30] VITALS: Ht 157.5 cm; Wt 102.0 kg
[~2025-06-30 17:13] MED LIST changes: +ACET500T58 PO
--- NOTE | 2025-06-30 17:33 | ED.PDOC ---
Musculoskeletal HPI Comments A 29 YEAR OLD FEMALE PRESENTS TO THE ED WITH COMPLAINT OF RIGHT KNEE PAIN. PATIENT STATES SHE HAS BEEN EXPERIENCING RIGHT KNEE PAIN DUE TO A WORK INJURY THAT OCCURRED 2 MONTHS AGO. PATIENT REPORTS SHE WAS PRESCRIBED TYLENOL FOR HER PAIN, BUT NOTES THERE HAS BEEN NO IMPROVEMENT IN HER SYMPTOMS. PATIENT IS REQU ESTING A DIFFERENT PAIN MEDICINE TO MANAGE HER PAIN. PATIENT DENIES FEVER, CHILLS, SHORTNESS OF BREATH, CHEST PAIN, ABDOMINAL PAIN, NAUSEA, VOMITING, HEADACHE, OR OTHER COMPLAINTS. NO OTHER SYMPTOMS OR MODIFYING FACTORS AT THIS TIME. PATIENT IS ALERT, ORIENTED X 4, AND HAS STEADY GAIT. Chief Complaint: Lower Extremity Time Seen by MD: 17:27 Primary Care Provider: SINDI Woodson Notes: Nurses Notes, Medications, Allergies Allergies: Coded Allergies: NO KNOWN ALLERGIES (Unverified , 05/31/10) Home Meds Active Scripts Ibuprofen (Ibuprofen) 800 Mg Tab, 1 TAB PO TID, #40 TAB Prov:SONIDO BANERJEE 06/30/25 Acetaminophen (Acetaminophen) 500 Mg Tab, 500 MG PO Q4HPRN, #30 TAB 0 Refills Prov:BENJAMIN HEATON 04/18/25 Cefdinir (Cefdinir) 300 Mg Cap, 1 CAP PO BID for 7 Days, #14 CAP Prov:LENA LAZARO MD 02/27/25 Ibuprofen (Ibuprofen) 800 Mg Tab, 1 TAB PO TID, #20 TAB Prov:SONIDO BANERJEE 02/16/25 Sulfamethoxazole W/Trimethopri (Bactrim Ds Tablet) 1 Tab Tb, 1 TAB PO BID for 10 Days, #20 TAB Prov:SONIDO BANERJEE 02/16/25 Reported Medications Ascorbic Acid (VITAMIN C TABLET) 500 Mg Tb, 1 TAB PO DAILY, TAB 07/02/23 Ferrous Sulfate (Iron) 325 Mg Tab, 325 MG PO DAILY, TAB 07/02/23 Norgestimate-Ethinyl Estradiol (Norgestimate/Eth... 0.18/0.215/0.25 mg-25 Mcg) 1 Tab Tab, 1 TAB PO DAILY, #1 TAB 07/02/23 Information Source: Patient Mode of Arrival: Ambulatory Location: Right Extremity Location: Knee Timing: Months Prehospital treatment: None Severity: Moderate Able to Move Extremity: Yes Bear Weight: Fully Pain: Moderate Mechanism: Twisting Circumstances: Work Related Onset of Symptoms: After Trauma Symptoms: Pain DVT Risk Factors: NONE Last Tetanus: Unknown Associated signs and symptoms: Knee pain Past Medical History PAST MEDICAL HISTORY: Denies Surgical History: Denies all surgeries COOLING ROOM ATTENDANT History: No Pertinent COOLING ROOM ATTENDANT History Family History Family History: Reviewed,noncontributory to illness Social History Smoker: Non-Smoker Alcohol: Denies ETOH Use Drugs: Denies Drug Use Lives In: Home Constitutional: denies: chills, diaphoresis, fatigue, fever, malaise, sweats, weakness, others EENTM: denies: blurred vision, double vision, ear bleeding, ear discharge, ear drainage, ear pain, ear ringing, eye pain, eye redness, hearing loss, mouth pain, mouth swelling, nasal discharge, nose bleeding, nose congestion, nose pain, photophobia, tearing, throat pain, throat swelling, voice changes, others Respiratory: denies: cough, hemoptysis, orthopnea, SOB at rest, shortness of breath, SOB with excertion, stridor, wheezing, others Cardiovascular: denies: chest pain, dizzy spells, diaphoresis, Dyspnea on exertion, edema, irregular heart beat, left arm pain, lightheadedness, palpitations, PND, syncope, others Gastrointestinal: denies: abdomen distended, abdominal pain, blood streaked bowels, constipated, diarrhea, dysphagia, difficulty swallowing, hematemesis, melena, nausea, poor appetite, poor fluid intake, rectal bleeding, rectal pain, vomiting, others Genitourinary: denies: abnormal vagina bleeding, burning, dyspareunia, dysuria, flank pain, frequency, hematuria, incontinence, pain, , vagina discharge, urgency, others Neurological: denies: dizziness, fainting, headache, left sided numbness, left sided weakness, numbness, paresthesia, pre-existing deficit, right sided numbness, right sided weakness, seizure, speech problems, tingling, tremors, weakness, others Musculoskeletal: reports: joint pain, joint swelling, others (RIGHT KNEE PAIN); denies: back pain, gout, muscle pain, muscle stiffness, neck pain Integumetry: denies: bruises, change in color, change in hair/nails, dryness, laceration, lesions, lumps, rash, wounds, others Allergic/Immunocompromised: denies: Difficulty Healing, Frequent Infections, Hives, Itching, others Hematologic/Lymphatic: denies: anemia, blood clots, easy bleeding, easy bruising, swollen glands, others Endocrine: denies: excessive hunger, excessive sweating, excessive thirst, excessive urination, flushing, intolerance to cold, intolerance to heat, unexplained weight gain, unexplained weight loss, others Psychiatric: denies: anxiety, bipolar disorder, depression, hopeless, panic disorder, schizophrenia, sleepless, suicidal, others All Other Systems: Reviewed and Negative Physical Exam General Appearance: No Apparent Distress, Obese HEENT: Normal ENT Inspection, PERRL/EOMI, Pharynx Normal, TMs Normal Neck: Full Range of Motion, Non-Tender, Normal, Normal Inspection Respiratory: Chest Non-Tender, Lungs Clear, No Accessory Muscle Use, No Respiratory Distress, Normal Breath Sounds Cardiovascular: No Edema, No JVD, No Murmur, No Gallop, Normal Peripheral Pulses, Regular Rate/Rhythm Breast Exam: Deferred Gastrointestinal: No Organomegaly, Non Tender, No Pulsatile Mass, Normal Bowel Sounds, Soft Genitalia: Deferred Pelvic: Deferred Rectal: Deferred Extremities: No calf tenderness, Normal capillary refill, Normal range of motion, No pedal edema, Tender (AND MILD SWELLING ON RIGHT KNEE, NO BONY TENDERNESS AND DEFORMITY. ) Musculoskeletal : Apperance: Normal Neurologic: Alert, costumed character II-XII nml as Tested, No Motor Deficits, Normal Affect, Normal Mood, No Sensory Deficits Cerebellar Function: Normal Reflexes: Normal Skin: Dry, Normal Color, Warm Peripheral Pulses: 2+ carotid (R), 2+ carotid (L), 2+ dorsalis pedis (R), 2+ dorsalis pedis (L) Lymphatic: No Adenopathy Was a procedure done? Was a procedure done?: No Differential Diagnosis EXT Differential Diagnosis: Sprain, Strain Other Differential Diagnosis PAIN MANAGEMENT X-Ray, Labs, Meds, VS Vital Signs Date Time Temp Pulse Resp B/P (MAP) Pulse Ox O2 Delivery O2 Flow Rate FiO2 06/30/25 17:47 98.3 90 16 129/84 (99) 98 98.3 06/30/25 17:15 98.3 90 16 129/84 98 98.3 X-Ray, Labs, Meds, VS Comment EXTERNAL MEDICAL RECORDS REVIEWED: [NONE] INDEPENDENT HISTORIANS: [NONE] SOCIAL DETERMINANTS OF HEALTH: [NONE] LABS ORDERED: NONE REVIEWED AND INTERPRETED RESULTS: NONE IMAGING ORDERED: NONE TREATMENTS ORDERED: NONE PROCEDURES PERFORMED: NONE CRITICAL CARE TIME: NONE I HAVE DISCUSSED THE PATIENT WITH THE ATTENDING PHYSICIAN DR. DUMONT AND HE AGREES WITH THE PATIENT'S PLAN OF CARE AND DISPOSITION. BASED ON HISTORY OF PRESENT ILLNESS, AND PHYSICAL EXAM, PATIENT WILL BE DISCHARGED HOME. DISCUSSED PLAN FOR DISCHARGE HOME WITH RX [MOTRIN 800MG]. MEDICATION WARNINGS GIVEN. SHARED DECISION MAKING: PATIENT INSTRUCTED TO FOLLOW UP WITH PRIMARY CARE PROVIDER IN 1-2 DAYS FOR RE-EVALUATION OF SYMPTOMS. PATIENT VERBALIZES UNDERSTANDING TO RETURN TO ED FOR NEW OR WORSENING SYMPTOMS OR IF FOLLOW UP WITH PCP CANNOT BE OBTAINED. PATIENT FEELS COMFORTABLE GOING HOME AT THIS TIME. ALL QUESTIONS ADDRESSED AT TIME OF DISCHARGE. Time of 1ST Reevaluation: 17:50 Reevaluation 1ST: Improved Patient Education/Counseling: Diagnosis, Treatment, Need For Follow Up Family Education/Counseling: Diagnosis, Treatment, Need For Follow Up Medical Screening: No EMC Exist At This Time Departure 1 Departure Time of Disposition: 17:50 Impression: Primary Impression: Internal derangement of right knee Disposition: 01 HOME / SELF CARE / HOMELESS Condition: Stable Additional Instructions: FOLLOW-UP WITH PCP IN 1 TO 2 DAYS. TAKE MEDICATIONS PRESCRIBED. RETURN TO ED FOR ANY NEW OR WORSENING SYMPTOMS. e-Prescriptions Ibuprofen (Ibuprofen) 800 Mg Tab 1 TAB PO TID, #40 TAB Prov: SONIDO BANERJEE 06/30/25 Discharged With: Self Critical Care Note Critical Care Time?: No Stability Stability form required: No I personally scribed for SONIDO BANERJEE ([email or web address]) on 06/30/25 at 17:33. Leonela ctronically submitted by Markel Villagomez ([email or web address]). I personally scribed for SONIDO BANERJEE ([email or web address]) on 06/30/25 at 17:40. Elect ronically submitted by Markel Villagomez ([email or web address]). SONIDO BANERJEE Jun 30, 2025 17:33
[2025-06-30 17:47] VITALS: BP 129/84; PULSE 90; RESP 16; TEMP 98.3; O2SAT 98
== END 2025-06-30 17:49 | disposition home or self-care (01) ==
LOC: ER 17:13
DX: M23.91 Unspecified internal derangement of right knee (principal); Z79.1 Long term (current) use of non-steroidal anti-inflammatories (NSAID); Z79.899 Other long term (current) drug therapy